=== PATIENT | female | born 1950 | race Caucasian/White ===

== ENCOUNTER 2021-01-11 11:09 | Outpatient (CLI) | payer MEDICARE | END 2021-01-11 11:10 | disposition short-term general hospital (02) | LOC: EMS 11:09 | DX: T84.023A Instability of internal left knee prosthesis, initial encounter (principal); W01.0XXA Fall on same level from slipping, tripping and stumbling without subsequent striking against object, initial encounter; Y93.01 Activity, walking, marching and hiking; Y92.512 Supermarket, store or market as the place of occurrence of the external cause | CPT/HCPCS: A0425; A0429 ==